=== PATIENT | male | born 1960 ===

== ENCOUNTER 2024-09-05 06:30 | Day surgery (SDC) | payer BC, SELFPAY ==
--- NOTE | 2024-08-31 14:21 | VNURNOTE ---
Patient is scheduled for an elective L TKA on 05/22/24- he is a same day patient with [facility]/will stay overnight. Spoke with patient prior to surgery. Introduced role of [facility] Liaison. He has had joint surgery in the past and had gone to outpt PT. He
denied home VN/PT in the past.
Discussed SDS joint protocol and post surgical plans.
Patient plans on outpt PT after return home, declined [facility]/PT. [facility] liaison instructed to call outpt PT as soon as possible to schedule for day after surgery.
Patient is in agreement with plan and states that his will be home with him. Ortho SUSIE Kumar updated.
Plan: Outpt PT. Location/date TBD.
--- NOTE | 2024-09-05 07:49 | W.PN.UPDATE ---
Update Note
Progress Note Update
L knee OA s/p L TKA w/ Dr Francisco 09/05/24
DVT prophylaxis - ASA, b/l venous foot pumps
HTN - + parameters - monitor BP
NIDDM - monitor BS
HLD
L3-L4 herniated discs
[2024-09-05 13:31] VITALS: BMI 31.4
[2024-09-05 13:40] LABS: Glucose - Point of Care 118 mg/dl (70-99)
[2024-09-05] MEDS: NORMOSOL-R/PLASMALYTE-A 1000 IV (13:42)
[2024-09-05 13:49] VITALS: BP 132/82
[2024-09-05 13:54] VITALS: BMI 31.4
[2024-09-05 13:55] VITALS: BMI 31.4
[2024-09-05] MEDS: CELEBREX 200 MG PO (14:26)
[2024-09-05 16:31] LABS: Glucose - Point of Care 90 mg/dl (70-99)
[2024-09-06 08:55] LABS: Glycohemoglobin (HgbA1c) 5.7 % (4.0-5.6)
== END 2024-09-05 16:55 | disposition home or self-care (01) ==
LOC: SDS 06:30
PROVIDERS: ATTENDING PHYSICIAN Orthopaedic Surgery; FAMILY PHYSICIAN Student in an Organized Health Care Education/Training Program
DX: M17.12 Unilateral primary osteoarthritis, left knee (principal); Z53.8 Procedure and treatment not carried out for other reasons
CPT/HCPCS: 27447; 82962; 83036; 87070

== ENCOUNTER 2024-09-08 06:20 | Day surgery (SDC) | payer BC, SELFPAY ==
[2024-09-08] VITALS (15 sets, daily range): BP systolic 103–135; BP diastolic 67–88; PULSE 82–89; O2SAT 97; BMI 31.2
[2024-09-08 09:08] LABS: Glucose - Point of Care 106 mg/dl (70-99)
[2024-09-08] MEDS: NORMOSOL-R/PLASMALYTE-A 1000 IV ×2 (09:09→14:00)
[2024-09-08] MEDS: CELEBREX 200 MG PO (09:12)
--- NOTE | 2024-09-08 11:55 | OR.RPT ---
Operative Report
Operative Report
Anesthesia Type:
Spinal
Operative Indications:
Left knee DJD
Operative Findings :
Same, significant arthritis noted trochlear and femoral condyles
Complications:
None
Implants:
El persona knee size 9 femur size F tibia 38 mm patella 11 mm MC poly
Procedure and Technique:
Left total knee arthroplasty
INDICATIONS FOR PROCEDURE:
63-year-old male who had failed conservative treatment for left knee DJD. This to consist of activity modification anti-inflammatory medications intra-articular injection therapy physical therapy. We discussed treatment options at length including
continue with conservative treatment as well as surgical intervention. Patient elected proceed with left total knee arthroplasty. We discussed risks benefits and alternatives of surgery. We discussed the usual expected perioperative postoperative
course. After discussion written informed consent was obtained.
OPERATIVE PROCEDURE:
Patient was taken to the operating room after being seen in preoperative holding area. Spinal anesthesia was administered. He is then placed supine on the OR table. Nonsterile tourniquet was applied. Operative extremity was then prepped and
draped in normal sterile fashion. Timeout was performed again identifying the correct operative extremity. Preoperative antibiotics were addressed. Standard anterior medial parapatellar approach was taken to the knee. Sharp dissection was
carried through skin flaps were raised. Sharp dissection was carried through a medial parapatellar approach. Fat pad was excised. Attention was initially turned to the femur where intramedullary jig was placed and distal femoral cut was
performed. Attention was then turned to the proximal tibia where extramedullary guide was utilized and the tibial cut was performed perpendicular to the mechanical axis. A 10 mm block was placed in the extension gap easily and patient was able to
achieve complete extension. Attention was then turned to the distal femur where 4-in-1 guide was placed and cuts were performed consisting of anterior posterior as well as chamfer cuts. Remainder soft tissue was excised including the medial
lateral meniscus. Trial femur and tibia with polyethylene insert were placed and patella was prepared. Neurolysis was performed circumferentially around the patella. This was found to be a size 38 patella. Trial patella was then placed and knee
was taken through range of motion found to be stable in complete extension and the patella tracked appropriately. Implants were removed and tibia was then prepared according to technique guide. Implants were then removed and cement was prepared.
The osseous structures were completely dried in preparation for cement. The final implants were then placed and cement was allowed to cure and complete extension. Multiple polyethylene inserts were trialed 11 mm poly was found to be quite stable
and extension flexion and mid flexion. The patella tracked nicely. Final polyethylene was placed after tourniquet was released and hemostasis was achieved. Wound was then copiously irrigated normal saline solution as well as Betadine solution.
Wound was closed in layered fashion utilizing #1 Vicryl for deep fascial layer 2-0 Vicryl for subcutaneous layer and paco for skin. Sterile dressing was applied. Anesthesia was versed and patient was taken to PACU in stable condition.
Postoperative plans will include weightbearing to patient's tolerance. Aspirin will be recommended for DVT prophylaxis. Plan to see patient back 2 weeks postop.
Disposition:
PACU stable condition
[2024-09-08] MEDS: DILAUDID 0.5 MG IV ×3 (12:08→14:03)
[2024-09-08 12:21] LABS: Glucose - Point of Care 182 mg/dl (70-99)
[2024-09-08] MEDS: ROXICODONE 5 MG PO (12:55)
[2024-09-08] MEDS: DILAUDID 0.25 MG IV (12:57)
[2024-09-08] MEDS: NEURONTIN 300 MG PO (13:15)
[2024-09-08] MEDS: TYLENOL 650 MG PO ×3 (13:21→19:44)
[2024-09-08] MEDS: NOVOLOG FLEXPEN-MODERATE RESISTANCE 1 UNITS SC (14:40)
[2024-09-08] MEDS: LIDOCAINE 4% PATCH 2 PATCH TOPICAL (14:43)
[2024-09-08] MEDS: TORADOL 15 MG IV (14:44)
--- NOTE | 2024-09-08 15:43 | VNURNOTE ---
Chart reviewed. Confirmed with Alayna RICHARDS that plan is outpt PT upon DC.
[2024-09-08] MEDS: ROXICODONE 10 MG PO ×2 (15:45→19:44)
[2024-09-08] MEDS: FLEXERIL 10 MG PO (15:54)
[2024-09-08 17:28] LABS: Glucose - Point of Care 207 mg/dl (70-99)
[2024-09-08] MEDS: ANCEF 5 IV (17:38)
[2024-09-08] MEDS: NOVOLOG FLEXPEN-MODERATE RESISTANCE 3 UNITS SC (17:38)
[2024-09-08] MEDS: LOW STRENGTH ASPIRIN 81 MG PO (19:43)
[2024-09-08] MEDS: SENOKOT 17.2 MG PO (19:44)
[2024-09-08] MEDS: COLACE 100 MG PO (19:44)
[2024-09-08 21:26] LABS: Glucose - Point of Care 246 mg/dl (70-99)
[2024-09-08] MEDS: CRESTOR 5 MG PO (22:28)
[2024-09-08] MEDS: FLEXERIL 5 MG PO (22:28)
[2024-09-08] MEDS: BACTROBAN 2% OINTMENT 1 APPLIC NASAL (22:29)
[2024-09-08] MEDS: PEPCID 20 MG PO (22:30)
[2024-09-09] MEDS: TYLENOL 650 MG PO ×4 (00:25→14:01)
[2024-09-09] MEDS: ANCEF 5 IV (02:18)
[2024-09-09 03:31] VITALS: BP 115/71
[2024-09-09] MEDS: ROXICODONE 5 MG PO ×3 (04:19→14:01)
[2024-09-09 07:26] VITALS: BP 113/68
[2024-09-09 07:41] LABS: Glucose - Point of Care 211 mg/dl (70-99)
[2024-09-09 08:59] LABS: Glucose - Point of Care 234 mg/dl (70-99)
--- NOTE | 2024-09-09 09:27 | W.PN.ORTHO ---
Today's Communication / Plan
-
63-year-old male postop day 1 status post left total knee arthroplasty doing well
Weightbearing as tolerated left lower extremity
PT OT
Pain control
DVT prophylaxis: Aspirin 81 mg twice daily x 30 days
Plan: Discharge home today pending physical therapy evaluation
Subjective
.
.:
Patient seen during physical therapy. Reports the pain has improved significantly. Reports the pain he was experiencing prior to surgery has nearly completely resolved. He does note some generalized soreness around thigh. Does report that has
been able to urinate but does not feel an urge to.
Vital Signs and Labs
.
Vital Signs and Labs:
Temp Pulse Resp BP Pulse Ox
97.3 F 80 16 113/68 95
09/09/24 07:26 09/09/24 07:26 09/09/24 07:26 09/09/24 07:26 09/09/24 07:26
Non-invasive Hgb result: 13.5
Physical Exam
-
Musculoskeletal left lower extremity
Dressing in place with mild bloody drainage
Moderate swelling
Positive EHL, FHL, ankle dorsiflexion, plantarflexion
Sensation grossly tact light touch distally
[2024-09-09] MEDS: BACTROBAN 2% OINTMENT 1 APPLIC NASAL (09:29)
[2024-09-09] MEDS: SENOKOT 17.2 MG PO (09:29)
[2024-09-09] MEDS: NOVOLOG FLEXPEN-MODERATE RESISTANCE 3 UNITS SC (09:30)
[2024-09-09] MEDS: LOW STRENGTH ASPIRIN 81 MG PO (09:30)
[2024-09-09] MEDS: COLACE 100 MG PO (09:30)
[2024-09-09] MEDS: CELEBREX 200 MG PO (09:30)
[2024-09-09] MEDS: LIDOCAINE 4% PATCH 2 PATCH TOPICAL (09:31)
[2024-09-09 09:32] VITALS: BP 115/67; BP 121/80; PULSE 89; O2SAT 95
[2024-09-09 11:20] VITALS: BP 103/66
[2024-09-09 12:31] LABS: Glucose - Point of Care 175 mg/dl (70-99)
[2024-09-09] MEDS: NOVOLOG FLEXPEN-MODERATE RESISTANCE SC (14:02)
[2024-09-09 15:26] VITALS: BP 131/81
--- NOTE | 2024-09-09 16:13 | CHAP ---
Visited Mr. Jensen at 2:45pm. He was looking forward to going home, grateful for the good care he has received. He welcomed prayer - we gave thanks for his good progress, and asked blessings for his continued recovery.
== END 2024-09-09 15:45 | disposition home or self-care (01) ==
LOC: SDS 06:20
PROVIDERS: ATTENDING PHYSICIAN Orthopaedic Surgery; FAMILY PHYSICIAN Student in an Organized Health Care Education/Training Program
DX: M17.12 Unilateral primary osteoarthritis, left knee (principal)
CPT/HCPCS: 27447; C1776; C1713; 73560; 82962; 97110; 97116; 97162; 97166; 97535